=== PATIENT | male | born 1945 | race Hispanic/Latino ===

== ENCOUNTER 2018-06-26 11:37 | Emergency (ER) | payer MEDICARE ==
[~2018-06-26] VITALS: Ht 172.7 cm; Wt 79.4 kg
[2018-06-26 13:35] VITALS: BP 141/93
== END 2018-06-26 13:30 | disposition home or self-care (01) ==
LOC: ER 11:37
DX: K62.5 Hemorrhage of anus and rectum (principal); K64.9 Unspecified hemorrhoids; I10 Essential (primary) hypertension; Z86.73 Personal history of transient ischemic attack (TIA), and cerebral infarction without residual deficits
CPT/HCPCS: 99282

== ENCOUNTER 2023-01-30 08:53 | Outpatient (RCR) | payer MEDICARE | END 2023-02-20 | LOC: ST 08:53 | PROVIDERS: ATTEND Psychiatry & Neurology Clinical Neurophysiology | DX: R13.12 Dysphagia, oropharyngeal phase (principal); G20.A1 Parkinson's disease without dyskinesia, without mention of fluctuations; F02.80 Dementia in other diseases classified elsewhere, unspecified severity, without behavioral disturbance, psychotic disturbance, mood disturbance, and anxiety ==